=== PATIENT | male | born 1935 | race Caucasian/White ===

== ENCOUNTER 2018-11-01 13:21 | Inpatient (IN) | payer MEDICARE, OTHER ==
[~2018-11-01] VITALS: Ht 177.8 cm; Wt 96.6 kg
[2018-11-01 15:40] VITALS: BP 201/63
--- NOTE | 2018-11-01 19:49 | NUR ---
PT ARRIVED TO ROOM 230 AT APPROX 1530 DIRECT ADMIT. ADMISSION DONE CHARTED. BP ELEVATED, DR GA NOTIFED, MEDS ORDERED AND GIVEN CHARTED PER MAR. PT REPORTS HX OF FALL 3 WEEKS AGO, FALL PRECAUTIONS IN PLACE. PT JAZMIN ON TELE, SECOND DEGREE BLOCK TYPE 1, PTS AT BEDSIDE. REPORT GIVEN TO ONCOMING MYNOR FINLEY.
[2018-11-01 20:00] VITALS: BP 125/59
[2018-11-02] VITALS: BP 125/56; BP 126/54; BP 135/49
[2018-11-02 04:00] VITALS: BP 124/48
[2018-11-02 05:18] LABS: CALCIUM 8.9 mg/dL (8.5-10.1); CREATININE 1.3 mg/dL (0.6-1.3); POTASSIUM 4.2 mmol/L (3.5-5.1)
--- NOTE | 2018-11-02 05:43 | NUR ---
ASSUMED CARE OF PT AFTER REPORT AT 1930. PT A&0X4. FORGETFUL. VSS. PHYSICAL ASSESSMENT COMPLETED AND CHARTED. PT ON RA WITH WITH 93% O2 SAT. PT TRACING MOBITZ TYPE 1/ JAZMIN ON TELE. PT UP STANDBY ASSIST TO RESTROOM. DENIES ANY PAIN OR DISCOMFORT. ORTHOSTATIC OBTAINED CHARTED. HOURLY ROUNDING OBSERVED. CALL LIGHT WITHIN REACH.
--- NOTE | 2018-11-02 11:44 | NUR ---
MET WITH PT TO DISCUSS HOME SITUATION/DC PLANNING. PT LIVES WITH SPOUSE. HE IS INDEPENDENT AND ACTIVE INCLUDING ASSISTING HIS SON ON THE 'FARM.' PT USES NO EQUIPMENT AND DENIES NEEDS. WILL FOLLOW
[2018-11-02 12:39] VITALS: BP 128/68
--- NOTE | 2018-11-02 14:57 | 2DMMODE ---
[place] [address] 2 D/M-MODE ECHOCARDIOGRAM Name: CHEYENNE SAGE Room: [address] IN [facility]#: [id number] Admission: 11/01/18 Attend Phys: Carlyle Holley, Discharge: Date of : 33 Date of Service: 11/02/18 1457 Report #: [id number] THIS REPORT FOR: //name// APPROVED REPORT Study performed: 11/02/2018 11:15:09 EXAM: Comprehensive 2D, Doppler, and color-flow Echocardiogram Patient Location: In-Patient Room #: 230 Status: routine BSA: 2.17 HR: 57 bpm BP: 124/48 mmHg Rhythm: NSR Other Information Study Quality: Good Indications Dyspnea 2D Dimensions IVSd: 16.62 (7-11mm) LVOT Diam: 22.53 (18-24mm) LVDd: 51.38 mm PWd: 13.42 (7-11mm) Ascending Ao: 34.52 (22-36mm) LVDs: 25.29 (25-40mm) Aortic Root: 33.37 mm Volumes Left Atrial Volume (Systole) LA ESV Index: 35.00 mL/m2 Aortic Valve AoV Peak Pietro.: 1.65 m/s AO Peak Gr.: 10.89 mmHg LVOT Max P.93 mmHg AO Mean Gr.: 5.30 mmHg LVOT Mean P.46 mmHg LVOT Max V: 1.49 m/s AO V2 VTI: 33.91 cm LVOT Mean V: 0.98 m/s JOSH (VTI): 3.85 cm2 LVOT V1 VTI: 32.71 cm AI Weld: 1.02 m/s2 AI PHT: 901.64 ms Mitral Valve E/A Ratio: 0.77 [place] [address] 2 D/M-MODE ECHOCARDIOGRAM Name: CHEYENNE SAGE Room: [address] IN ..#: [id number] Admission: 11/01/18 Attend Phys: Carlyle Holley, Discharge: Date of : 33 Date of Service: 11/02/18 1457 Report #: [id number] MV Decel. Time: 212.33 ms MV E Max Pietro.: 0.60 m/s MV PHT: 61.58 ms MVA (PHT): 3.57 cm2 TDI E/Lateral E': 6.67 E/Medial E': 7.50 Medial E' Pietro.: 0.08 m/s Lateral E' Pietro.: 0.09 m/s Pulmonary Valve PV Peak Pietro.: 1.45 m/s PV Peak Gr.: 8.41 mmHg Left Ventricle The left ventricle is normal size. There is normal LV segmental wall motion. There is normal left ventricular wall thickness. Left ventricular systolic function is normal. The left ventricular ejection fraction is within the normal range. LVEF is 60%. Grade I - abnormal relaxation pattern. Right Ventricle The right ventricle is normal size. The right ventricular systolic function is normal. Atria Left atrium is at the upper limits of normal. The right atrium size is normal. Aortic Valve Mild aortic valve sclerosis. Mild aortic regurgitation. There is no aortic valvular stenosis. Mitral Valve The mitral valve is normal in structure. Trace mitral regurgitation. No evidence of mitral valve stenosis. Tricuspid Valve The tricuspid valve is normal in structure. Trace tricuspid regurgitation. Unable to assess PA pressure. Pulmonic Valve The pulmonary valve is normal in structure. There is no pulmonic valvular regurgitation. Great Vessels The aortic root is normal in size. IVC [place] [address] 2 D/M-MODE ECHOCARDIOGRAM Name: CHEYENNE SAGE Room: [address] IN [facility]#: [id number] Admission: 11/01/18 Attend Phys: Carlyle Holley, Discharge: Date of : 33 Date of Service: 11/02/18 1457 Report #: [id number] collapses >50% with inspiration. Pericardium There is no pericardial effusion. <Conclusion> The left ventricle is normal size. There is normal left ventricular wall thickness. Left ventricular systolic function is normal. The left ventricular ejection fraction is within the normal range. LVEF is 60%. Grade I - abnormal relaxation pattern. The right ventricle is normal size. Left atrium is at the upper limits of normal. Mild aortic valve sclerosis. Mild aortic regurgitation. There is no aortic valvular stenosis. The mitral valve is normal in structure. Trace mitral regurgitation. No evidence of mitral valve stenosis. The tricuspid valve is normal in structure. IVC is normal in size and collapses >50% with inspiration. There is no pericardial effusion. There is normal LV segmental wall motion. <ELECTRONICALLY SIGNED> By: Simba Kelly MD, FACC 11/02/18 1457 56 145 Simba Kelly MD, FACC /INF
[2018-11-02 16:36] VITALS: BP 101/53
--- NOTE | 2018-11-02 20:17 | NUR ---
I ASSUMED CARE OF THE PATIENT AT 0700. ALERT AND ORIENTED X4 AND UP WITH STAND BY ASSIST. HE IS ON ROOM AIR. PATIENT HAD A STRESS TEST. HE HAS A HEART RATE IN THE 30'S AND CARDIOLOGY IS AWARE OF IT. IS AT BEDSIDE. HOURLY ROUNDING IS COMPLETED AND PATIENT NEEDS ARE MET. WILL CONTINUE TO MONITOR. PAIN IS DENIED.
[2018-11-02 20:31] VITALS: BP 149/80; BP 167/57
[2018-11-03] VITALS: BP 168/57
--- NOTE | 2018-11-03 01:50 | NUR ---
ASSUMED CARE OF PATIENT AT 1900. BP SLIGHTLY ELEVATED. HEART RATE SLOWS TO THE 30'S. FREQUENT ASSESSMENT, NOT SYMPTOMATIC. WALKED THE HALLS WITH HIS , TOLERATED WELL. WILL CONTINUE TO CLOSELY MONITOR HEART RATE.
[2018-11-03 08:00] VITALS: BP 158/84
[2018-11-03 12:00] VITALS: BP 162/45
--- NOTE | 2018-11-03 12:57 | NUR ---
ASSUMED CARE OF PATIENT THIS AM AT 0730. PATIENT IS ALERT AND DISORIENTED X 4. HE DENIES PAIN AND DISCOMFORT. PATIENT HAS BEEN UP IN THE HALLS WITH SPOUSE THIS AM. HE IS CURRENTLY UP IN THE CHAIR. TELE SHOWS SR WITH 1D AVB WITH PACS TO 2ND DEGREE HEART BLOOCK. PATIENT IS TAKING HIS DIET WELL. HE HAD QUESTIONS ABOUT PACEMAKER PLACEMENT. PATIENT GIVEN VERBAL EDUCATION AND CARENOTES ABOUT PROCEDURE. 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 HIS IS IN AT THE BEDSIDE.
[2018-11-03] MEDS ORDERED: DYAZIDE 37.5-21 EACH PO (15:43)
[2018-11-03] MEDS ORDERED: NIFEDIPINE ER60 M1 PO (15:47)
[2018-11-03 15:51] VITALS: BP 162/45
--- NOTE | 2018-11-04 08:06 | D ---
[address] [address] DISCHARGE SUMMARY Name: CHEYENNE SAGE Room: [address] IN M.R.#: [id number] Admission: 11/01/18 Attend Phys: Carlyle Holley MD Discharge: 11/03/18 Date of : 33 Report #: [id number] THIS REPORT FOR: //name// CC: Carlyle Jamil MD DATE OF SERVICE: 11/03/2018 DISCHARGE DIAGNOSES: 1. Acute on chronic diastolic heart failure. 2. Hypertensive urgency. 3. Hypertension. 4. Type 1 second-degree arterioventricular block. HOSPITAL COURSE: The patient was admitted to the hospital with the above diagnoses. He initially had significant orthopnea, shortness of breath, dyspnea on exertion. These symptoms resolve promptly with diuresis. His blood pressure was initially quite elevated, but fell to normal range on medication. Once he diuresed adequately, his symptoms resolved. He was noted to be in a type 1 second-degree AV block throughout the hospital course. He had no significant symptoms attributed with this despite having fairly slow heart rates at occasions, especially when at rest or sleeping. He did have a decent chronotropic response with activity. The remainder of his hospital course was unremarkable. During hospitalization, the patient had an echocardiogram that showed normal left ventricular systolic function with ejection fraction of approximately 60%. He had grade 1 diastolic dysfunction noted consistent with age. Mild aortic insufficiency was noted. His echocardiogram was otherwise fairly unremarkable. He did rule out for myocardial infarction. DISCHARGE MEDICATIONS: 1. Maxzide 25 one tablet daily. 2. Nifedipine XL 60 mg daily. DISPOSITION: The patient is follow up with cardiac nurse practitioner on 11/11/2018. The patient is to follow up with myself in approximately 1 month. <ELECTRONICALLY SIGNED> By: Carlyle Holley MD, FACC 11/04/18 0806 1817 [id number] Holley MD, FACC /nt
== END 2018-11-03 16:49 | disposition home or self-care (01) | DRG 304 ==
LOC: M.2W 13:21
PROVIDERS: ADMIT Internal Medicine Cardiovascular Disease
DX: I16.0 Hypertensive urgency (principal); I50.33 Acute on chronic diastolic (congestive) heart failure; I11.0 Hypertensive heart disease with heart failure; I44.1 Atrioventricular block, second degree; I35.1 Nonrheumatic aortic (valve) insufficiency; Z79.899 Other long term (current) drug therapy

== ENCOUNTER → 2018-11-11 | Outpatient (CLI) | payer MEDICARE, OTHER ==
[~2018-11-11] MED LIST: DYAZIDE 37.5-21 EACH PO; NIFEDIPINE ER60 M1 PO
[2018-11-11 16:07] LABS: CALCIUM 8.8 mg/dL (8.5-10.1); CREATININE 1.4 mg/dL (0.6-1.3); MAGNESIUM 2.2 mg/dL (1.8-2.4); POTASSIUM 4.1 mmol/L (3.5-5.1)
== END ==
LOC: M.LAB 15:25
PROVIDERS: Nurse Practitioner Family
DX: I10 Essential (primary) hypertension (principal); R41.0 Disorientation, unspecified; I44.1 Atrioventricular block, second degree

== ENCOUNTER → 2020-08-28 | Outpatient (CLI) | payer MEDICARE, OTHER ==
[~2020-08-28] VITALS: Ht 177.8 cm; Wt 90.7 kg
[2020-08-28 14:28] VITALS: BP 192/90
[2020-08-28 14:35] LABS: HEMATOCRIT 27.3 % (42.0-52.0); HEMOGLOBIN 9.4 gm/dL (14.0-18.0); MCH 35.4 pg (26.0-34.0); MCHC 34.5 g/dL (28.0-37.0); MCV 102.5 fL (80.0-100.0); RBC 2.66 mil/uL (4.50-6.00); WBC 6.8 thou/uL (4.0-11.0)
[2020-08-28 14:44] LABS: CALCIUM 8.3 mg/dL (8.5-10.1); CREATININE 2.7 mg/dL (0.6-1.3); POTASSIUM 3.8 mmol/L (3.5-5.1)
[2020-08-28 14:49] LABS: ALBUMIN 3.7 g/dL (3.4-5.0); TOTAL BILIRUBIN 0.8 mg/dL (<0.1-1.0); TOTAL PROTEIN 6.5 g/dL (6.4-8.2)
--- NOTE | 2020-08-28 16:03 | EKG ---
[place] [address] ELECTROCARDIOGRAM REPORT Name: CHEYENNE SAGE Room: [facility]#: [id number] Admission: 08/28/20 Attend Phys: Carlyle Holley, Discharge: Date of : 33 Date of Service: 08/28/20 1424 Report #: [id number] THIS REPORT FOR: //name// [facility] Test Date: 2020-08-28 Test Time: 14:24:57 Pat Name: CHEYENNE SAGE Department: Room: Gender: Transportation Maintenance Supervisor: : 1935 Requested By: Carlyle Holley Order Number: [id number] Kiersten MD: Simba Kelly Measurements Intervals [place] Rate: 35 P: 63 MT: 402 QRS: -41 QRSD: 159 T: -10 QT: 620 QTc: 474 Interpretive Statements Sinus bradycardia Prolonged MT interval Probable left atrial enlargement RBBB and LAFB Left ventricular hypertrophy No previous ECG available for comparison Electronically Signed On 08-28-2020 16:03:31 CDT by Simba Kelly [email or web address] <ELECTRONICALLY SIGNED> By: Simba Kelly MD, [facility] 08/28/20 1603 1424 1424 Simba Kelly MD, [facility] /EPI
[2020-08-28 16:26] VITALS: BP 176/50
[2020-08-28 16:39] VITALS: BP 167/60
[2020-08-28 17:12] VITALS: BP 188/62
[2020-08-28 17:28] VITALS: BP 171/57
--- NOTE | 2020-08-31 18:23 | CARD ---
[address] [address] CARDIAC CATH REPORT Name: CHEYENNE SAGE Arlette Room: [facility]#: [id number] Admission: 08/28/20 Attend Phys: Carlyle Holley MD Discharge: Date of : 33 Report #: [id number] THIS REPORT FOR: //name// cc: Kera Jamil MD, Sarah N. MD ~ APPROVED REPORT Study performed: 08/28/2020 14:09:10 Patient Status: Out-Patient Room #: Event Personnel: Carlyle Holley Mental Hygiene Consultant, Amanda Leung RN Corporate Travel Agent, Jami Gonzalez RTR Monitor, Yudi Delong RTR Scrub Exam: Insertion of Dual Chamber Permanent Pacemaker The patient is a 84 year-old male with a history of . Conscious Sedation Start time: 15:21 End Time: 15:57 Fentanyl 50 mcg Versed 2 mg Ancef 2 grams IV, given prior to procedure. Hydralazine 20 mg IV, given during procedure. Implanted Devices: BIOTRONIK SOLIA S 53 VENTRICULAR LEAD. SERIAL: [id number]. BIOTRONIK SOLIA S 45 ATRIAL LEAD. SERIAL: [id number]. BIOTRONIK EDORA 8 DR-T PACEMAKER GENERATOR. SERIAL: [id number]. Procedure The patient underwent informed consent. We discussed the details of the procedure including the risks, which include, but not limited to bleeding, infection, vascular damage, cardiac perforation, and pneumothorax. He understood these risks and was willing to proceed. As such, he was brought to the EP/Cardiac Catheterization laboratory in a fasting and sedated state and prepped and draped in a sterile fashion, received IV antibiotics prior to initiation of the procedure and a venogram was performed showing patency of the left axillary vein. The patient underwent conscious sedation, with no related complications. The patient was brought to the EP/Cardiac Catheterization laboratory and the left chest and shoulder were prepped and draped in a sterile manner. During this case, Fluoroscopy and visipaque 20cc [place] [address] CARDIAC CATH REPORT Name: CHEYENNE SAGE Room: [facility]#: [id number] Admission: 08/28/20 Attend Phys: Carlyle Holley MD Discharge: Date of : 34 Report #: [id number] imaging. The left subclavian region was infiltrated with 2% Lidocaine with Epinephrine subcutaneous anesthesia. A transverse incision was made in the left upper chest cavity. The subcutaneous pocket was formed via blunt dissection. Percutaneous venous access was achieved and an introducer sheath was inserted into the left Subclavian vein. Through the introducer sheaths the atrial and ventricular lead wires were positioned in the right atrial appendage and right ventricular apex respectively. Utilizing fluoroscopic guidance, the atrial and ventricular lead wires were advanced over the wires and positioned in the right atria and right ventricle respectively. Capturing and sensing thresholds were verified. Electrode Parameters P Wave: 1.5 mV R Wave: 10.0 mV Atrial Threshold: 0.7 V at 0.40 ms Ventricular Threshold: 1.1 V at 0.40 ms Atrial Resistance: 410 ohms Ventricular Resistance: 570 ohms Dual Chamber The atrial and ventricular leads were then secured using 0 silk sutures. The subcutaneous pocket was irrigated with Ancef 1 gram antibiotic solution.The atrial and ventricular leads were attached to the appropriate receptacles on the pulse generator and set screws firmly tightened to insure adequate contact and stability. The lead and pulse generator were placed into the subcutaneous pocket. Sharp and sponge counts were confirmed to be correct. At this time the pocket was closed subcutaneously with a 2.0 Vicryl and the skin was closed with a 4.0 Vicryl. The operative site was dressed in sterile fashion with benzoin spray, steri strips, sterile dressing and the patient was transferred to the floor in stable condition. Complications The patient tolerated the procedure well and there were no complications associated with the procedure. Findings Specimens Removed: No Estimated Blood Loss: less than 5 [place] [address] CARDIAC CATH REPORT Name: CHEYENNE SAGE Room: [facility]#: [id number] Admission: 08/28/20 Attend Phys: Carlyle Holley MD Discharge: Date of : 34 Report #: [id number] 1. Complete heart block . 2. Successful placement of a dual-chamber pacemaker with atrial and ventricular lead placements. Recommendations 1. Follow-up site check in 1 week. 2. Follow-up device interrogation in 1 to 2 months. <ELECTRONICALLY SIGNED> By: Carlyle Holley MD, FACC 08/31/201822 22 22Michael Taj Holley MD, FACC /INF
== END ==
LOC: M.CL 11:59
PROVIDERS: ATTEND Internal Medicine Cardiovascular Disease
DX: I44.1 Atrioventricular block, second degree (principal); I44.30 Unspecified atrioventricular block; I13.0 Hypertensive heart and chronic kidney disease with heart failure and stage 1 through stage 4 chronic kidney disease, or unspecified chronic kidney disease; I50.32 Chronic diastolic (congestive) heart failure; N18.9 Chronic kidney disease, unspecified; Z79.899 Other long term (current) drug therapy; Z98.890 Other specified postprocedural states